=== PATIENT | male | born 1955 | race Caucasian/White ===

== ENCOUNTER 2019-07-12 10:40 | Inpatient (IN) | payer BC ==
[~2019-07-12] VITALS: Ht 170.2 cm; Wt 77.1 kg
[2019-07-13] MEDS ORDERED: ZYLOPRIM100 MG PO (09:28)
[2019-07-13] MEDS ORDERED: LOSARTAN-HCTZ1 EAC1 PO (09:28)
[2019-07-13] MEDS ORDERED: NORVASC5 MG PO (09:28)
[2019-07-13] MEDS ORDERED: GEMFIBROZIL600 MG PO (09:28)
[2019-07-13] MEDS ORDERED: KLOR-CON 1010 MEQ PO (09:29)
[2019-07-13] MEDS ORDERED: LIPITOR40 MG PO (09:29)
[2019-07-13] MEDS ORDERED: VITAMIN D10000 UNI1 PO (09:30)
[2019-07-13] MEDS ORDERED: JUICE PLUS PO (09:31)
[2019-07-13] MEDS ORDERED: OMEPRAZOLE40 MG PO (09:31)
[2019-07-13 10:46] LABS: BASOPHILS 0.5 % (0-2); EOSINOPHILS 3.4 % (0-7); HEMATOCRIT 39.7 % (42.0-54.0); HEMOGLOBIN 13.5 g/dL (13.5-17.5); IMMATURE GRANULOCYTES 0.2 % (0-5); LYMPHOCYTES 26.9 % (15-50); MCH 30.6 pg (26.0-34.0); MEAN PLATELET VOLUME 9.6 fL (7.4-10.4); MONOCYTES 9.4 % (2-11); NEUTROPHILS 59.6 % (40-80); PLATELET COUNT 234 10x3/uL (130-400); RBC 4.41 10x6/uL (4.20-6.10); RDW 13.3 % (11.5-14.5); WBC 6.3 10x3/uL (4.8-10.8)
[2019-07-13 10:53] LABS: CALC OSMOLALITY 275 mosm/kg (275-300); CALCIUM 9.2 mg/dL (8.5-10.1); CARBON DIOXIDE 27.2 mmol/L (21.0-32.0); CHLORIDE - SERUM 100 mmol/L (98-107); CREATININE - SERUM 0.9 mg/dL (0.6-1.3); GLUCOSE 95 mg/dL (74-106); POTASSIUM - SERUM 3.3 mmol/L (3.5-5.1); SODIUM 137 mmol/L (136-145); UREA NITROGEN 17 mg/dL (7-18); eGFR NON AFRICAN AMERICAN > 90 mL/min (90-120)
[2019-07-13 11:13] LABS: APTT 29.7 SECONDS (22.8-39.4); INR 0.88 (0.85-1.17); PROTIME 11.9 SECONDS (11.6-15.0)
[2019-07-13 12:19] LABS: BILIRUBIN NEGATIVE (NEGATIVE); GLUCOSE NEGATIVE (NEGATIVE); KETONE NEGATIVE (NEGATIVE); NITRITE NEGATIVE (NEGATIVE); SPECIFIC GRAVITY 1.005 (1.005-1.020); UROBILINOGEN NORMAL (NORMAL)
[2019-07-18] VITALS (7 sets, daily range): BP systolic 91–113; BP diastolic 61–79; BMI 26.0; BMI 26.7
[2019-07-18] MEDS ORDERED: ZYLOPRIM100 MG PO (09:12)
[2019-07-18] MEDS ORDERED: GEMFIBROZIL600 MG PO ×3 (09:12→09:16)
[2019-07-18] MEDS ORDERED: KLOR-CON 1010 MEQ PO (09:12)
[2019-07-18] MEDS ORDERED: NORVASC5 MG PO (09:13)
[2019-07-18] MEDS ORDERED: LOSARTAN-HCTZ1 EAC1 PO (09:14)
[2019-07-18] MEDS ORDERED: LIPITOR40 MG PO (09:14)
[2019-07-18] MEDS ORDERED: OMEPRAZOLE20 M1 PO (09:15)
--- NOTE | 2019-07-18 13:04 | NUR ---
RECEIVED TO ROOM 1211 VIA BED FROM PACU. A/O X3. DRESSING TO LEFT HIP DRY AND INTACT. DENIES NEEDS.
--- NOTE | 2019-07-18 17:36 | OP ---
PATIENT NAME: LORI MANUEL MEDICAL RECORD: [id number] :59 LOCATION:D. D.1211 ADMISSION DATE:07/18/19 SURGEON: TEDDY ROLDAN, DATE OF OPERATION: 07/18/2019 PROCEDURE PERFORMED: Left total hip arthroplasty. 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 INDICATIONS: Mr. Manuel is a 64-year-old male who has had increasing bilateral hip pain for years. It got to a point where he can barely walk and he got an MRI from his primary care, which showed the above findings. He had bilateral AVN of the femoral head and a femoral neck fracture in the left femoral neck. It was nondisplaced, likely due to insufficiency. I informed him that we would need to do a hip replacement as it was the only way to fix this. He is 64 and that he would be at risk for infection, bleeding, damage to nerves or vessels, need for further surgery, blood clots, failure of implants, fracture, and even and he signed a consent. SURGEON: Teddy Roldan MD DESCRIPTION OF PROCEDURE: The patient was taken to the operative suite, laid in supine position, given general anesthetic and intubated. He was given 2 grams of Ancef and 80 mg of gentamicin and a gram of TXA. The patient was then positioned on the [place] table. The left hip was prepped and draped in sterile fashion. Timeout was performed. Everyone was in agreeance with the correct side, site, patient and procedure. We then reprepped prior to the final drape with chlorhexidine. We then made an incision down to the tensor fascia vikram muscle. The fascia was incised, taken anterior muscle belly posterior. We opened up the rectus interval. Rectus interval was opened and then tied off the ascending branch with lateral femoral circumflex arteries and coagulated with Aquamantys. I then went to the capsule, put Hohmanns around the neck and opened up the capsule, and made the femoral neck cut and removed the head. We then removed the labrum and reamed in the acetabulum under fluoroscopy and then impacted the 50 cup and fit very well. It was tested with a Harish, made sure it was tight and it was. We then put the liner and impacted it in. Once we impacted the cup and then exposed the femur, the christopher cutter, canal finder and broached up to a 12, took an x-ray to see that we needed a more lateral and cut some more of neck as the neck was very long, did that and then got more lateral and put a 15, broached down with a +3 neck fit very well, was the appropriate lengths on AP pelvis with AP of the hip. We then removed that and put the actual implants in and reduced the hip and it moved very well, it was a small ball, not a big ball with a dual mobility. We then irrigated with a 10% povidone iodine with 500 mL of normal saline and then let set for 3 minutes. I then irrigated it out with more than a liter of normal saline. Once that was completed, the tobramycin and vancomycin powder and abhi powder was placed, and the capsule was left and closed the fascia of the tensor fascia vikram with [id number] of #1 Vicryl and then a running locking stitch. The skin was then closed by Javy Alberto, certified surgical cutting table operator first with 2-0 Vicryl in an inverted interrupted fashion and 4-0 Monocryl ran on the skin and then placed the Prineo glue on the skin. He was then dressed with Telfa and Tegaderm. OPERATIVE REPORT [id number] LORI MANUEL Awakened and taken to recovery in stable condition. Blood loss was approximately 200 mL. COMPLICATIONS: None. TRANSINT:[id number] Voice Confirmation ID: [id number] DOCUMENT ID: [id number] TEDDY ROLDAN DO at 1736 CC: IJGNESH URIOSTEGUI [id number] DICTATION DATE: 07/18/19 1239 NETWORKING TECHNOLOGY INSTRUCTOR: 07/18/19 1459 ADM IN [facility] [address] [place] [address]
--- NOTE | 2019-07-18 19:26 | NUR ---
ATE MOST OF SUPPER TRAY. NO BEER WITH TRAY. KITCHEN STATED THEY WERE OUT. NO CHANGES NOTED. DENIES NEEDS.
--- NOTE | 2019-07-18 19:40 | NUR ---
SITTING UPIN BED TALKING ON PHONE. ALERT AND ORIENTED X4. RESP EVEN AND NONLABORED. ENCOURAGED USE OF I.S. RATES PAIN IN LT HIP 2. DENIES NEED FOR PAIN MED. SCDS AND GERMAN HOSE IN USE BILAT. DRSG TO LT HIP HAS SMALL AMOUNT OF DRAINAGE NOTED AND MARKED WITH GREEN MARKER. HASNT VOIDED SINCE SURGERY. DENIES DISTRESS OR FEELING FULL. WILL CONT TO MONITOR. 1/2 NS @ 50 ML/HR INFUSING IN RT FOREARM WITHOUT DIFF. SR ELEVATED X2. CL IN REACH. PEDAL PULSES STRONG BILAT.
--- NOTE | 2019-07-18 21:00 | NUR ---
ORDER NOTED FOR BEER, BUT NONE AVAILABLE.
--- NOTE | 2019-07-18 23:05 | NUR ---
URINATED URINAL AT THIS TIME. HAS BEEN ON PHONE MOST OF THE SHIFT SO FAR. DENIES NEED FOR PAIN MED AT THIS TIME. CL IN REACH.
[2019-07-19 00:31] VITALS: BP 113/71
--- NOTE | 2019-07-19 00:40 | NUR ---
MEDICATED WITH OXY IR 5MG FOR C/O PAIN IN LT HIP RATING 3. STILL TALKING ON PHONE. CL IN REACH.
--- NOTE | 2019-07-19 01:41 | NUR ---
FINALLY RESTING WITH EYES CLOSED. RESP NONLABORED. NO DISTRESS. CL IN REACH.
--- NOTE | 2019-07-19 03:04 | NUR ---
LYING IN BED WITH EYES CLOSED. NO DISTRESS. RESP NONLABORED. CL IN REACH.
[2019-07-19 04:26] VITALS: BP 115/68
--- NOTE | 2019-07-19 05:36 | NUR ---
MEDICATED WITH OXY IR 5MG ORDERED FOR C/O PAIN IN LT HIP RATING 4. CL IN REACH.
[2019-07-19 06:13] LABS: HEMATOCRIT 38.7 % (42.0-54.0); HEMOGLOBIN 12.7 g/dL (13.5-17.5); MCH 29.9 pg (26.0-34.0); MCHC 32.8 g/dL (31.0-37.0); MCV 91.1 fL (80.0-100.0); MEAN PLATELET VOLUME 9.7 fL (7.4-10.4); RBC 4.25 10x6/uL (4.20-6.10); RDW 13.3 % (11.5-14.5); WBC 9.2 10x3/uL (4.8-10.8)
--- NOTE | 2019-07-19 07:00 | NUR ---
RECEIVED REPORT FROM ORDER FULFILLMENT SPECIALIST. PT IS ALERT AND ORIENTED X3, DRESSING NOTED TO THE LEFT HIP, CLEAN, DRY AND INTACT. TOTAL HIP REPLACED ON 07/17. PT HAS IV TO RIGHT FOREARM WITH HALF NS @ 50. PT HAS SCD AND GERMAN ROBLES BOTH ARE ON PT AT THIS TIME. PT IS UP WITH WALKER WITH ASSISTANCE. PT REQUESTED WATER, PROVIED PROMPTLY. REQUESTED THAT LATER TODAY [facility]. DENIES ANY OTHER NEEDS AT THIS TIME. WILL CTM.
[2019-07-19 08:04] VITALS: BP 106/75
--- NOTE | 2019-07-19 08:06 | NUR ---
ASSESSED VITAL SIGNS AT THIS TIME. FOLLOWS: BP 106/75 P 87 TEMP 98.0 O2 SAT 93%. REFILLED PT WATER, DENIES ANY NEEDS AT THIS TIME. WILL CTM.
[2019-07-19 09:02] LABS: ALBUMIN 3.6 g/dL (3.4-5.0); ALKALINE PHOSPHATASE 87 U/L (30-120); ALT (SGPT) 34 U/L (10-68); BILIRUBIN - TOTAL 0.42 mg/dL (0.2-1.3); CALC OSMOLALITY 278 mosm/kg (275-300); CALCIUM 8.7 mg/dL (8.5-10.1); CARBON DIOXIDE 23.4 mmol/L (21.0-32.0); CHLORIDE - SERUM 102 mmol/L (98-107); GLUCOSE 131 mg/dL (74-106); POTASSIUM - SERUM 4.3 mmol/L (3.5-5.1); PROTEIN - SERUM 6.9 g/dL (6.4-8.2); SODIUM 138 mmol/L (136-145); UREA NITROGEN 15 mg/dL (7-18); eGFR NON AFRICAN AMERICAN 80 mL/min (90-120)
--- NOTE | 2019-07-19 09:10 | NUR ---
ADMINISTERED DAILY MEDICATION AT THIS TIME. NO TROUBLE SWALLOWING, PROVIDED PT WITH MORE WATER. HANG IV ANTIBIOTICS AND NEW BAG OF NORMAL SALINE. PHYSICAL THERAPY IN ROOM HELPING PT AMBULATE TO BATHROOM AND THEN WILL GO ON A WALK. DENIES ANY OTHER NEEDS AT THIS TIME. DRESSING IS STILL CLEAN, DRY AND INTACT. WILL CTM.
--- NOTE | 2019-07-19 10:38 | NUR ---
ADMINSITERED TIMED MEDICATION AT THIS TIME. ALSO ADMINSTERED PRN OXYCODONE 5 FOR A PAIN LEVEL OF A 4 IN THE HIP AND THIGH. NO TROUBLE SWALLOWING NOTED. DENEIS ANY NEEDS AT THIS TIME. PT IS CURRENTLY SITTING IN BEDSIDE CHAIR WITH SCD'S OFF. SHIFT ASSESSMENT PERFORMED AT THIS TIME. WILL CTM.
--- NOTE | 2019-07-19 11:14 | NUR ---
PT BACK FROM AMBULATING STAIRS WITH PHYSICAL THERAPY. ASSISTED PT TO BATHROOM. FAMILY IN ROOM. DENIES ANY NEEDS AT THIS TIME. WILL CTM.
[2019-07-19 13:43] VITALS: Ht 170.2 cm; Wt 77.1 kg
--- NOTE | 2019-07-19 13:51 | NUR ---
PT RESTING COMFORTABLY IN BED ON THE PHONE. REQUESTED ICE BAG TO BE REFILLED, PROVIDED PROMPTLY. BREATHING EVEN AND UNLABORED, NO S/S OF DISTRESS NOTED. DENIES ANY NEEDS. WILL CTM.
[2019-07-19] MEDS ORDERED: VISTARIL50 MG PO (14:32)
[2019-07-19] MEDS ORDERED: ELIQUIS2.5 MG PO (14:32)
[2019-07-19] MEDS ORDERED: OXYCODONE HCL5 M1 PO (14:34)
[2019-07-19] MEDS ORDERED: KEFLEX500 MG PO (14:34)
--- NOTE | 2019-07-19 14:39 | NUR ---
CHANGED PT DRESSING, INCISION IS WELL APPROXIMATED, NO DRAINAGE. CLEAN, DRY AND INTACT. RESTING COMFORTABLY IN BED, NO S/S OF DISTRESS NOTED. DR. ROLDAN IS DISCHARGING PATIENT. DENIES ANY NEEDS AT THIS TIME. WILL CTM.
--- NOTE | 2019-07-19 16:10 | NUR ---
REMOVED PT IV FROM RIGHT FOREARM, TIP INTACT. PLACED 2X2'S AND TAPE OF THE SITE. PT TOLERATED WELL. PT SIGNED ALL PAPERWORK. DAUGHTER HERE TO ESCORT PT HOME. WHEELED PT TO THE FRONT IN WHEELCHAIR AND HELPED WITH AMBULATION INTO VEHICLE. DENIES ANY NEEDS UPON DEPARTURE.
--- NOTE | 2019-07-19 22:27 | MORECARE ---
CASE MANAGEMENT DISCHARGE SUMMARY PATIENT: LORI MANUEL UNIT: [id number] ADM DATE: 07/18/19 AGE: 64 : 59 SEX: M ROOM/BED: D.1211 AUTHOR: EDITH LOW PHYSICIAN: REFERRING PHYSICIAN: KENA ROLDAN DO DATE OF SERVICE: 07/19/19 Discharge Plan Patient Name: [facility]ORI MANUEL [facility] [facility] 1955 Planned Disposition: Home Anticipated Discharge Date: Discharge Date: 07/19/2019 Expected LOS: Initial Reviewer: [email or web address] Initial Review Date: 07/19/2019 Generated: 07/19/19 11:26 pm DCPIA - Discharge Planning Initial Assessment Updated by [email or web address]: Magalys Danielson on 07/19/19 10:23 pm * Is the patient Alert and Oriented? Yes * How many steps to enter\exit or inside your home? * PCP GILA * Pharmacy [facility] * Preadmission Environment Home with Family * ADLs Independent * Other Equipment WALKER, ELEVATED TOILET SEAT, SC, CANE * List name and contact numbers for known caregivers / representatives who currently or will assist patient after discharge: JOSHUA COHEN [facility] - [phone] [facility]- [phone] * Verbal permission to speak to the caregivers and representatives has been obtained from the patient. Yes * Community resources currently utilized None * Additional services required to return to the preadmission environment? No * Can the patient safely return to the preadmission environment? Yes * Has this patient been hospitalized within the prior 30 days at any hospital? No Patient Name: LORI MANUEL Page [id number] at 2227 All edits/amendments must be made on the electronic document DICTATION DATE: 07/19/192226 [address] JUDGE: GABRIELE 07/19/192226 RPT#: [id number] DC DATE:07/19/19 STATUS: DIS IN [facility] [address] [place] [address] END OF REPORT
--- NOTE | 2019-07-19 22:34 | MORECARE ---
CASE MANAGEMENT DISCHARGE SUMMARY PATIENT: LORI MANUEL UNIT: [id number] ADM DATE: 07/18/19 AGE: 64 : 59 SEX: M ROOM/BED: D.1211 AUTHOR: DEVANTE,DOC PHYSICIAN: REFERRING PHYSICIAN: KENA ROLDAN DO DATE OF SERVICE: 07/19/19 Discharge Plan Patient Name: LORI MANUEL Facility: [facility]:[place] : 1955 Planned Disposition: Home Anticipated Discharge Date: Discharge Date: 07/19/2019 Expected LOS: Initial Reviewer: [email or web address] Initial Review Date: 07/19/2019 Generated: 07/19/19 11:33 pm Comments DCP- Discharge Planning Updated by [email or web address]: Magalys Danielson on 07/19/19 9:[address] Patient Name: LORI MANUEL Admission Status: Elective Accout number: [id number] Admission Date: 07-18-2019 : 1955 Admission Diagnosis: Attending: KENA ROLDAN Current LOS: 1 Anticipated DC Date: Planned Disposition: Home Primary Insurance: [employer] OUT OF STATE Discharge Planning Comments: CM met with patient at bedside after explaining CM role and obtaining verbal consent. Patient lives at home with his girlfriend where he is independent with his care and plans to return there upon discharge. Patient feels this would be a safe discharge. CM discussed availability / needs of home health and medical equipment. Patient states they are suppose to bring him a walker up here. GOOD signed for [facility] for outpatient therapy. CM contacted [facility] [phone] and faxed [phone] records. Patient has first appointment 07/19 @ 1pm Patient denies any discharge needs at this time. Patient states he will have his family drive him home upon discharge. CM will continue to follow and assist as needed with discharge planning / needs. Airline Radio Operator: Magalys Danielson DCPIA - Discharge Planning Initial Assessment Updated by [email or web address]: Magalys Danielson on 07/19/19 10:23 pm * Is the patient Alert and Oriented? Yes * How many steps to enter\exit or inside your home? * PCP GILA * Pharmacy [facility] * Preadmission Environment Home with Family * ADLs Independent * Other Equipment WALKER, ELEVATED TOILET SEAT, SC, CANE * List name and contact numbers for known caregivers / representatives who currently or will assist patient after discharge: JOSHUA COHEN - [facility] - [phone] YENI KLINE- - [phone] * Verbal permission to speak to the caregivers and representatives has been obtained from the patient. Yes * Community resources currently utilized None * Additional services required to return to the preadmission environment? No * Can the patient safely return to the preadmission environment? Yes * Has this patient been hospitalized within the prior 30 days at any hospital? No Last DP export: 07/19/19 9:27 p Patient Name: LORI MANUEL Page [phone] at 2234 All edits/amendments must be made on the electronic document DICTATION DATE: 07/19/192232 HAND BUNCH MAKER: GABRIELE 07/19/192232 RPT#: [id number] DC DATE:07/19/19 STATUS: DIS IN [facility] [address] [place] [address] END OF REPORT
== END 2019-07-19 16:41 | disposition home or self-care (01) | DRG 469 ==
LOC: D.SDCHOLD 07-18 08:20 → D.M3 07-18 08:20 → D.SDCHOLD 07-18 10:30 → D.M3 07-18 12:49 → D.SDCHOLD 07-18 13:15 → D.M3 07-19 16:41
PROVIDERS: Family Medicine; ADMIT Orthopaedic Surgery; ATTEND Orthopaedic Surgery
PROC: 0SRB0JZ Replacement of Left Hip Joint with Synthetic Substitute, Open Approach (ICD-10-PCS; principal; 2019-07-18 10:30)
DX: M87.852 Other osteonecrosis, left femur (principal); S72.002A Fracture of unspecified part of neck of left femur, initial encounter for closed fracture; F17.213 Nicotine dependence, cigarettes, with withdrawal; X58.XXXA Exposure to other specified factors, initial encounter; Y93.9 Activity, unspecified; I10 Essential (primary) hypertension; K21.9 Gastro-esophageal reflux disease without esophagitis; G89.29 Other chronic pain; M54.9 Dorsalgia, unspecified; F10.20 Alcohol dependence, uncomplicated

== ENCOUNTER → 2019-07-13 16:44 | Outpatient (CLI) | payer BC ==
[~2019-07-13 16:44] MED LIST: GEMFIBROZIL600 MG PO; JUICE PLUS PO; KLOR-CON 1010 MEQ PO; LIPITOR40 MG PO; LOSARTAN-HCTZ1 EAC1 PO; NORVASC5 MG PO; OMEPRAZOLE20 M1 PO; OMEPRAZOLE40 MG PO; VITAMIN D10000 UNI1 PO; ZYLOPRIM100 MG PO
== END | disposition home or self-care (01) ==
LOC: D.LABREF 16:44
PROVIDERS: ATTEND Orthopaedic Surgery
DX: M16.12 Unilateral primary osteoarthritis, left hip (principal)